=== PATIENT | male | born 1995 | race Caucasian/White ===

== ENCOUNTER 2017-11-10 23:56 | Emergency (ER) | payer OTHER ==
[~2017-11-10] VITALS: Ht 172.7 cm; Wt 124.7 kg
[2017-11-11 00:04] VITALS: Ht 172.7 cm; Wt 124.7 kg
[2017-11-11 01:08] VITALS: BP 137/94
== END 2017-11-11 01:08 | disposition home or self-care (01) ==
LOC: ED 23:56
DX: K62.5 Hemorrhage of anus and rectum (principal)

== ENCOUNTER 2017-11-20 09:18 | Emergency (ER) | payer OTHER ==
[~2017-11-20] VITALS: Ht 170.2 cm; Wt 122.5 kg
[2017-11-20 09:25] VITALS: BP 123/79; Ht 170.2 cm; Wt 122.5 kg
[2017-11-20 10:59] LABS: BASOPHIL % 0.1 % (0-2); PLATELET COUNT 296 x10^3mcL (130-400); RED CELL DISTRIBUTION WIDTH 12.2 % (11.5-14.5)
[2017-11-20 11:00] LABS: CALCIUM 9.1 mg/dL (8.5-10.1); CARBON DIOXIDE 31.5 mmol/L (21-32); CHLORIDE SERUM 102 mmol/L (98-107); CREATININE SERUM 0.8 mg/dL (0.7-1.3); GFR1 > 60 mL/min; GLUCOSE SERUM 91 mg/dL (74-106); POTASSIUM SERUM 4.1 mmol/L (3.5-5.1); SODIUM SERUM 138 mmol/L (136-145)
[2017-11-20 11:04] LABS: ALBUMIN 4.5 g/dL (3.4-5.0); ALKALINE PHOSPHATASE 70 U/L (46-116); ALT/SGPT 67 U/L (16-63); AST/SGOT 32 U/L (15-37); TOTAL PROTEIN, SERUM 7.7 g/dL (6.4-8.2)
== END 2017-11-20 11:52 | disposition home or self-care (01) ==
LOC: ED 09:18
PROVIDERS: Emergency Medicine
DX: K62.5 Hemorrhage of anus and rectum (principal)
CPT/HCPCS: 36415

== ENCOUNTER 2018-03-25 08:32 | Emergency (ER) | payer OTHER ==
[~2018-03-25] VITALS: Ht 172.7 cm; Wt 121.6 kg
[2018-03-25 09:02] VITALS: BP 133/90; Ht 172.7 cm; Wt 121.6 kg
== END 2018-03-25 10:48 | disposition home or self-care (01) ==
LOC: ED 08:32
DX: S00.03XA Contusion of scalp, initial encounter (principal); W22.8XXA Striking against or struck by other objects, initial encounter; Y93.01 Activity, walking, marching and hiking; Y92.89 Other specified places as the place of occurrence of the external cause; Y99.8 Other external cause status